=== PATIENT | male | born 1955 | race Caucasian/White ===

== ENCOUNTER 2020-06-03 13:05 | Emergency (ER) | payer MEDICAID ==
[~2020-06-03] VITALS: Ht 177.8 cm; Wt 87.1 kg
[2020-06-03 13:16] VITALS: Ht 177.8 cm; Wt 87.1 kg
[2020-06-03 19:58] VITALS: BP 215/89
== END 2020-06-03 19:58 | disposition short-term general hospital (02) ==
LOC: ED 13:05
DX: H33.21 Serous retinal detachment, right eye (principal); H54.7 Unspecified visual loss; E11.22 Type 2 diabetes mellitus with diabetic chronic kidney disease; I12.0 Hypertensive chronic kidney disease with stage 5 chronic kidney disease or end stage renal disease; N18.6 End stage renal disease; Z99.2 Dependence on renal dialysis; Z88.6 Allergy status to analgesic agent
CPT/HCPCS: J0360